=== PATIENT | female | born 1975 | race Caucasian/White ===

== ENCOUNTER 2024-07-08 09:25 | Outpatient (OUT) | payer OTHER, SELFPAY ==
[2024-07-08 10:16] LABS: Basophils Percent Auto 0.6 % (0.2-2.0); Eosinophils Absolute Auto 0.3 10^3/uL (0.0-0.7); Eosinophils Percent Auto 3.9 % (0.9-7.0); Hematocrit 45.9 % (36.0-48.0); Hemoglobin 14.9 g/dL (12.0-16.0); Immature Granulocytes Abs Auto 0.01 10^3/uL (0.00-0.03); Immature Granulocytes Pct Auto 0.2 % (0.0-0.5); Lymphocytes Absolute Auto 2.3 10^3/uL (1.2-3.8); Lymphocytes Percent Auto 35.5 % (20.5-60.0); Mean Corpuscular HGB Conc 32.5 g/dL (29.9-35.2); Mean Corpuscular Hemoglobin 28.9 pg (26.7-34.0); Mean Corpuscular Volume 89.1 fL (81.0-99.0); Mean Platelet Volume 8.9 fL (9.5-13.5); Monocytes Absolute Auto 0.4 10^3/uL (0.3-0.8); Monocytes Percent Auto 6.4 % (1.7-12.0); Neutrophils Absolute Auto 3.4 10^3/uL (1.4-6.5); Neutrophils Percent Auto 53.4 % (43.0-75.0); Platelet Count 285 10^3/uL (150-450); Red Blood Count 5.15 10^6/uL (4.20-5.40); Red Cell Distribution Width 12.4 % (11.0-15.0); White Blood Count 6.4 10^3/uL (4.0-11.0)
[2024-07-08 10:37] LABS: Alanine Aminotransferase 26 U/L (14-59); Albumin Globulin Ratio 0.9; Albumin Level 3.5 g/dL (3.4-5.0); Alkaline Phosphatase 73 U/L (46-116); Anion Gap 12.5; Aspartate Amino Transferase 12 U/L (15-37); BUN Creatinine Ratio 16.7; Bilirubin Total 0.4 mg/dL (0.2-1.0); Calcium 9.1 mg/dL (8.5-10.1); Carbon Dioxide 28.6 mmol/L (21.0-32.0); Chloride 106 mmol/L (98-107); Cholesterol 204 mg/dL (<=200); Estimated GFR (African America >60 (>=60 mL/min/1.73m^2); Estimated GFR (Non-African Ame >60 (>=60 mL/min/1.73m^2); Globulin 3.9 g/dL; Glucose 98 mg/dL (74-106); HDL Cholesterol 69 mg/dL (40-60); Potassium 4.1 mmol/L (3.5-5.1); Sodium 143 mmol/L (136-145); Total Protein 7.4 g/dL (6.4-8.2); Triglycerides 96 mg/dL (<=150); VLDL CHOLESTEROL 19.2 mg/dL
== END 2024-07-08 09:26 | disposition home or self-care (01) ==
LOC: LAB 09:30
PROVIDERS: PCP Nurse Practitioner Family; Visit Provider Nurse Practitioner Family
DX: Z00.00 Encounter for general adult medical examination without abnormal findings (principal)
CPT/HCPCS: 36415; 80053; 80061; 85025

== ENCOUNTER 2024-07-11 17:22 | Outpatient (OUT) | payer OTHER, SELFPAY ==
--- NOTE | 2024-07-11 17:25 | MM_ITS ---
Patient Name: JEB LYNN MR#: [id number] : 1975 Exam Date: 07/11/2024 Ordering Doctor: MIGUELITO GOINS WOOD TECHNOLOGIST-C RADIOLOGY REPORT PROCEDURE: MM TOMOSYNTHESIS SCREENING BI COMPARISON: MG MAMM SCREEN [place] W CAD, 10/11/2017. MG MAMM SCREEN 3D [place] CAD, 06/04/2021. INDICATIONS: Screening Calculator Name NCI Breast Cancer Risk Assessment Tool 5 Year Breast Cancer Risk 0.90% Lifetime Breast Cancer Risk 8.00% Personal Breast Cancer No Personal Ovarian Cancer No Treatments None Family Cancers Father with rectal cancer at age 58; Grandmother-maternal with lung cancer at age 61. LOCATION: [facility] BREAST COMPOSITION: There are scattered areas of fibroglandular density. FINDINGS: DIAGNOSTIC CATEGORY 2--BENIGN FINDING. NO CHANGE FROM COMPARISON. Scattered benign-appearing calcifications are present. Scattered benign-appearing lymph nodes are present. No significant change has occurred. RIGHT BREAST: No significant suspicious finding. LEFT BREAST: No significant suspicious finding. RECOMMENDATIONS: ROUTINE MAMMOGRAM AND CLINICAL EVALUATION IN 12 MONTHS. PLEASE NOTE: A NORMAL MAMMOGRAM DOES NOT EXCLUDE THE POSSIBILITY OF BREAST CANCER. A CLINICALLY SUSPICIOUS PALPABLE LUMP SHOULD BE BIOPSIED. Dictated by: Remigio Wilson MD on 07/12/2024 at 08:50 Approved by: Remigio Wilson MD on 07/12/2024 at 08:52
== END 2024-07-11 17:23 | disposition home or self-care (01) ==
PROVIDERS: PCP Nurse Practitioner Family; Visit Provider Nurse Practitioner Family
DX: Z12.31 Encounter for screening mammogram for malignant neoplasm of breast (principal); Z80.8 Family history of malignant neoplasm of other organs or systems; Z80.1 Family history of malignant neoplasm of trachea, bronchus and lung
CPT/HCPCS: 77063; 77067

== ENCOUNTER 2024-10-13 18:25 | Emergency (ER) | payer OTHER, SELFPAY ==
[2024-10-13] VITALS (13 sets, daily range): BP systolic 145–170; BP diastolic 91–106; PULSE 75–102; TEMP 36.7; O2SAT 95–100; BMI 27.1
--- NOTE | 2024-10-13 18:40 | ECG_ITS ---
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 Measurements Intervals [place] Rate: 68 P: 61 CA: 148 QRS: 62 QRSD: 100 T: 54 QT: 396 QTc: 414 Interpretive Statements 1100 Sinus rhythm 9110 normal ECG Compared to ECG 05/09/2022 09:37:14 No significant changes Electronically Signed On 10-14-2024 6:45:26 EST by SHIN GUERRERO M.D.
--- NOTE | 2024-10-13 18:42 | ED_ITS ---
HPI HPI - General Adult General Chief complaint: Chest Pain Stated complaint: DIZZY, CHEST PAIN, SWOLLEN LOWER EXTREMITY Time Seen by Provider: 10/13/24 18:31 Source: patient Mode of arrival: walk-in Limitations: no limitations History of Present Illness HPI narrative: Patient is a 49-year-old female who presents to the emergency department concern for swelling and pain to the right lower extremity. She states she had an injury where she twisted her knee 3 weeks ago, she was seen by orthopedics and x-rays were performed. She states that her orthopedist is concerned she has a torn meniscus and she is awaiting an MRI. She states she has noted that her right thigh feels more swollen and painful and she is concerned she may have a blood clot. She states she had an ankle fracture in 2018 approximately and due to immobilization she developed a clot in the right leg. She does not have any history of clotting disorder. She has no history of coronary artery disease, high blood pressure, cholesterol or diabetes. She is a non-smoker. She states 1 hour ago prior to arrival she noted pain in the center of her chest. The pain comes and goes and she has no severe pain at this time. She does not feel short of breath. She states she started to feel dizzy and anxious which prompted her to come to the ER. She does take anxiety medication but states this does not feel like her typical anxiety. She took ibuprofen prior to arrival for pain. Related Data Home Medications ?Medication ?Instructions ?Recorded ?Confirmed ibuprofen 600 mg tablet 600 mg PO Q12H 10/13/24 10/13/24 Allergies Allergy/AdvReac Type Severity Reaction Status Date / Time amoxicillin Allergy Severe Rash Verified 10/13/24 18:37 cefaclor (From Ceclor) Allergy Severe Hives Verified 10/13/24 18:37 Penicillins Allergy Severe Rash Verified 10/13/24 18:37 doxycycline AdvReac Severe Nausea Verified 10/13/24 18:37 Opioid HPI Opioid Management Most Recent Opioid Data: No Data to Display Review of Systems ROS Constitutional Denies: fever or chills Ears, nose, mouth, and throat Denies: throat pain or nasal congestion Cardiovascular Reports: chest pain Respiratory Denies: shortness of breath or cough Gastrointestinal Denies: abdominal pain, nausea or vomiting Musculoskeletal Reports: extremity pain and extremity swelling; Denies: back pain Integumentary/Breast Denies: rash Neurological Denies: numbness in extremities or weakness in extremities Hematologic/Lymphatic Denies: easy bruising or easy bleeding [facility] Social History Little interest or pleasure in doing things: not at all Feeling down, depressed, or hopeless: not at all Exam Narrative Exam Narrative: Gen.: Awake, alert, in no distress Head: Normocephalic, atraumatic ENT: Moist mucous membranes Respiratory: No respiratory distress, lungs clear bilaterally Cardio: Regular rate and rhythm Extremities: Moves extremities equally, lower extremities are symmetric, no appreciable swelling or erythema. No open wounds or red streaking Psych: Normal mood and affect Neuro: No focal neuro deficit Skin: Warm, dry, intact Constitutional Vital Signs, click to edit/add: Last Vital Signs Temp 98.1 F 10/13/24 18:32 Pulse 83 10/13/24 20:10 Resp 13 10/13/24 20:10 BP 170/106 H 10/13/24 20:15 Pulse Ox 97 10/13/24 20:15 O2 Del Method Room Air 10/13/24 18:48 Course Vital Signs Vital signs: Vital Signs Temperature 98.1 F 10/13/24 18:32 Pulse Rate 75 10/13/24 18:32 Respiratory Rate 20 10/13/24 18:32 Blood Pressure 145/91 H 10/13/24 18:32 Pulse Oximetry 98 10/13/24 18:32 Oxygen Delivery Method Room Air 10/13/24 18:32 Temperature 98.1 F 10/13/24 18:32 Pulse Rate 83 10/13/24 20:10 Respiratory Rate 13 10/13/24 20:10 Blood Pressure 170/106 H 10/13/24 20:15 Pulse Oximetry 97 10/13/24 20:15 Oxygen Delivery Method Room Air 10/13/24 18:48 Medical Decision Making MDM Narrative Medical decision making narrative: Patient had no significant complaints of pain in the ER, she declined pain medication or nausea medication. She is hemodynamically stable. EKG is unremarkable. She had a CT angio of the chest which shows no evidence of PE and ultrasound of the right lower extremity with no evidence of DVT. She was given education and reassurance on reevaluation by attending physician and will be discharged home to follow-up with primary care. Return to the ER if symptoms change or worsen SHARED APC VISIT, PHYSICIAN ATTESTATION: [id number] I performed a substantive part of the MDM during the patient?s E/M visit. I personally evaluated and examined the patient. I personally made or approved the documented management plan and acknowledge its risk of complications. Medical Records Medical records reviewed: Yes I reviewed the patient's medical records Lab Data Lab results reviewed: Yes I reviewed the patient's lab results Labs: Lab Results 10/13/24 Range/Units 18:44 WBC 7.3 (4.0-11.0) 10^3/uL RBC 4.74 (4.20-5.40) 10^6/uL Hgb 13.6 (12.0-16.0) g/dL Hct 41.3 (36.0-48.0) % MCV 87.1 (81.0-99.0) fL MCH 28.7 (26.7-34.0) pg MCHC 32.9 (29.9-35.2) g/dL RDW 12.4 (11.0-15.0) % Plt Count 249 (150-450) 10^3/uL MPV 8.9 L (9.5-13.5) fL Neut % (Auto) 44.7 (43.0-75.0) % Lymph % (Auto) 43.9 (20.5-60.0) % [place] % (Auto) 6.5 (1.7-12.0) % Eos % (Auto) 4.4 (0.9-7.0) % Baso % (Auto) 0.4 (0.2-2.0) % Neut # (Auto) 3.3 (1.4-6.5) 10^3/uL Lymph # (Auto) 3.2 (1.2-3.8) 10^3/uL [place] # (Auto) 0.5 (0.3-0.8) 10^3/uL Eos # (Auto) 0.3 (0.0-0.7) 10^3/uL Baso # (Auto) 0.0 (0.0-0.1) 10^3/uL Abs Immat Gran (auto) 0.01 (0.00-0.03) 10^3/uL Imm/Tot Granulo (auto) 0.1 (0.0-0.5) % PT 10.3 (9.0-11.6) sec INR 0.97 Sodium 139 (136-145) mmol/L Potassium 3.5 (3.5-5.1) mmol/L Chloride 104 (98-107) mmol/L Carbon Dioxide 28.8 (21.0-32.0) mmol/L Anion Gap 9.7 BUN 14.0 (7.0-18.0) mg/dL Creatinine 0.84 (0.55-1.02) mg/dL Est GFR ( Amer) >60 (>=60 mL/min/1.73m^2) Est GFR (Non-Af Amer) >60 (>=60 mL/min/1.73m^2) BUN/Creatinine Ratio 16.7 Glucose 114 H (74-106) mg/dL Calcium 9.1 (8.5-10.1) mg/dL Total Bilirubin 0.3 (0.2-1.0) mg/dL AST 17 (15-37) U/L ALT 21 (14-59) U/L Alkaline Phosphatase 78 (46-116) U/L Troponin I High Sens <4.0 L (4.0-51.3) pg/mL NT-Pro-B Natriuret Pep 64.0 (<=900.0) pg/mL Total Protein 7.3 (6.4-8.2) g/dL Albumin 3.7 (3.4-5.0) g/dL Globulin 3.6 g/dL Albumin/Globulin Ratio 1.0 TSH 2.675 (0.358-3.740) uIU/mL Imaging Data CT scan - chest: Attestation: I have reviewed the pertinent imaging results. ECG Data Attestation: I personally reviewed and interpreted this ECG as follows: (Normal sinus rhythm at a rate of 68, no acute ST elevation or ectopy. EKG reviewed by attending physician) Discharge Plan Discharge Chief Complaint: Chest Pain Clinical Impression: Atypical chest pain, Pain in right leg Patient Disposition: Home, Self-Care Time of Disposition Decision: 20:48 Condition: Good Prescriptions / Home Meds: No Action ibuprofen 600 mg tablet 600 mg PO Q12H Print Language: Afghan Instructions: Chest Pain (ED), Leg Pain (ED) Referrals: MIGUELITO GOINS [Primary Care Provider] - 1 week
[2024-10-13 19:10] LABS: Basophils Percent Auto 0.4 % (0.2-2.0); Eosinophils Absolute Auto 0.3 10^3/uL (0.0-0.7); Eosinophils Percent Auto 4.4 % (0.9-7.0); Hematocrit 41.3 % (36.0-48.0); Hemoglobin 13.6 g/dL (12.0-16.0); Immature Granulocytes Abs Auto 0.01 10^3/uL (0.00-0.03); Immature Granulocytes Pct Auto 0.1 % (0.0-0.5); Lymphocytes Absolute Auto 3.2 10^3/uL (1.2-3.8); Lymphocytes Percent Auto 43.9 % (20.5-60.0); Mean Corpuscular HGB Conc 32.9 g/dL (29.9-35.2); Mean Corpuscular Hemoglobin 28.7 pg (26.7-34.0); Mean Corpuscular Volume 87.1 fL (81.0-99.0); Mean Platelet Volume 8.9 fL (9.5-13.5); Monocytes Absolute Auto 0.5 10^3/uL (0.3-0.8); Monocytes Percent Auto 6.5 % (1.7-12.0); Neutrophils Absolute Auto 3.3 10^3/uL (1.4-6.5); Neutrophils Percent Auto 44.7 % (43.0-75.0); Platelet Count 249 10^3/uL (150-450); Red Blood Count 4.74 10^6/uL (4.20-5.40); Red Cell Distribution Width 12.4 % (11.0-15.0); White Blood Count 7.3 10^3/uL (4.0-11.0)
[2024-10-13 19:25] LABS: INR 0.97; Prothrombin Time 10.3 sec (9.0-11.6)
[2024-10-13 19:38] LABS: Alanine Aminotransferase 21 U/L (14-59); Albumin Level 3.7 g/dL (3.4-5.0); Alkaline Phosphatase 78 U/L (46-116); Anion Gap 9.7; Aspartate Amino Transferase 17 U/L (15-37); BUN Creatinine Ratio 16.7; Bilirubin Total 0.3 mg/dL (0.2-1.0); Calcium 9.1 mg/dL (8.5-10.1); Carbon Dioxide 28.8 mmol/L (21.0-32.0); Chloride 104 mmol/L (98-107); Estimated GFR (African America >60 (>=60 mL/min/1.73m^2); Estimated GFR (Non-African Ame >60 (>=60 mL/min/1.73m^2); Globulin 3.6 g/dL; Glucose 114 mg/dL (74-106); Potassium 3.5 mmol/L (3.5-5.1); Sodium 139 mmol/L (136-145); Thyroid Stimulating Hormone 2.675 uIU/mL (0.358-3.740); Total Protein 7.3 g/dL (6.4-8.2); Troponin I High Sensitivity <4.0 pg/mL (4.0-51.3)
== END 2024-10-13 21:05 | disposition home or self-care (01) ==
PROVIDERS: Physician Assistant; Emergency Provider Emergency Medicine; PCP Nurse Practitioner Family
DX: R07.89 Other chest pain (principal); M79.604 Pain in right leg; F41.9 Anxiety disorder, unspecified; R42 Dizziness and giddiness
CPT/HCPCS: 36415; 71275; 80053; 83880; 84443; 84484; 85025; 85610; 93005; 93971; 99285; Q9967

== ENCOUNTER 2025-04-24 07:54 | Outpatient (RCR) | payer OTHER, SELFPAY | END 2025-05-17 13:13 | disposition home or self-care (01) | LOC: PT 07:54 | PROVIDERS: PCP Nurse Practitioner Family; Visit Provider Nurse Practitioner Family | DX: M54.2 Cervicalgia (principal); M25.511 Pain in right shoulder | CPT/HCPCS: 20560; 97110; 97140; 97161 ==